=== PATIENT | female | born 1960 | race Caucasian/White ===

== ENCOUNTER 2024-08-30 17:39 | Inpatient (IN) | payer OTHER, SELFPAY ==
[2024-08-30 12:04] VITALS: BP 211/77
[2024-08-30 12:25] LABS: % Basophils 0.6 % (0-2); % Eosinophils 3.7 % (0-6); % Immature Granulocytes 0.3 % (0-0.5); % Lymphocytes 21.7 % (20.5-51.1); % Monocytes 6.9 % (1.7-9.3); % Neutrophils 66.8 % (42.2-75.2); Absolute Eosinophils 0.3 10^3/uL (0-0.7); Absolute Lymphocytes 1.5 10^3/uL (1.2-3.4); Absolute Monocytes 0.5 10^3/uL (0.1-0.6); Absolute Neutrophils 4.5 10^3/uL (1.4-6.5); Hematocrit 35.4 % (37.0-47.0); Hemoglobin 12.2 g/dL (12.0-16.0); Mean Corp Hgb Conc. 34.5 g/dL (33.0-37.0); Mean Corpuscular Hgb 29.9 pg (27.0-31.0); Mean Corpuscular Volume 86.8 fL (81.0-99.0); Mean Platelet Volume 10.7 fL (7.4-10.4); Nucleated Red Blood Cells % 0 %; Platelet Count 250 10^3/uL (130-400); Red Blood Cell Count 4.08 10^6/uL (4.20-5.40); Red Cell Dist. Width 12.5 % (11.5-14.5); White Blood Cell Count 6.8 10^3/uL (4.8-10.8)
[2024-08-30 12:43] LABS: ALT (SGPT) 18 U/L (0-35); AST (SGOT) 18 U/L (14-36); Albumin 4.3 g/dl (3.5-5.0); Alkaline Phosphatase 72 U/L (38-126); Blood Urea Nitrogen 51 mg/dl (7-17); Calcium 9.6 mg/dl (8.4-10.2); Carbon Dioxide 24 mmol/L (22-30); Chloride 101 mmol/L (98-107); Glucose 308 mg/dl (70-99); Potassium 4.6 mmol/L (3.5-5.1); Sodium 138 mmol/L (135-145); Total Bilirubin 0.6 mg/dl (0.2-1.3); Total Protein 6.6 g/dl (6.3-8.2); eGFR 15.39
[2024-08-30 12:44] VITALS: BP 137/126
[2024-08-30 13:00] VITALS: BP 121/83
--- NOTE | 2024-08-30 13:33 | ED.GENMED ---
History of Present Illness
General
Chief Complaint: Change in Mental Status
Source: patient and family
Exam Limitations: none
Time Seen by Provider: 08/30/24 12:39
Nursing documentation reviewed up to this point in time: agreed with
History of Present Illness
History of Present Illness:
Patient is a 64-year-old female with history of CAD, hypertension, diabetes presenting to the emergency department with altered mental status. Patient reports approximately 2 weeks of balance difficulties while walking. She then states that about
1 week ago she started experiencing dizziness/lightheadedness which has persisted although is intermittent in nature. On he suffered an unwitnessed fall in her bedroom. Her [id number]-[id number] states that yesterday she seemed confused and
altered and was having speech difficulties. She states that she was having difficulty finding the correct word.
Patient was seen by her primary care this morning where given her symptoms and elevated blood pressure in office she was concerned that she may have had a stroke. She was referred to the emergency department for CT imaging and further evaluation.
Patient denies any headache or neck pain. No pain in extremities following fall. Patient denies any back pain since fall.
She denies any recent fever or chills. No dysuria.
Review of Systems
Review of Systems
Allergies reviewed?: Yes
All Other Systems: ROS reviewed and negative except as documented in HPI and ROS
Phy Exam
Physical Exam
Physical Exam:
Vitals: Hypertensive on arrival, improved by my assessment.
General: Patient is well appearing, no acute distress. Nontoxic appearing
Skin: Warm and dry, no rashes or lesions
Head: Normocephalic, atraumatic
Eyes: Sclera nonicteric. EOMs intact. Pupils equal round reactive light bilaterally. No nystagmus.
Throat: Protecting airway
Neck: Normal ROM, no cervical spine tenderness, no meningismus
Cardiac: Regular rate and rhythm, no murmurs.
Pulm: Normal respiratory effort, no wheezes, rales, rhonchi heard on exam.
Abdomen: No abdominal tenderness.
Extremities: No evidence of cyanosis or edema. Strength 5 out of 5 in bilateral upper and lower extremities
Neuro: AAOx3. CN II-XII grossly intact on examination. Normal [id number]. Clear speech. No facial droop or asymmetry
Psychiatric: Normal affect.
Scores
NIH Stroke Score
Level of Consciousness: 0 - Alert
LOC Questions: 0-Answers both correctly
LOC Commands: 0-Performs both correctly
Best Horizontal Gaze: 0-Normal
Visual Burg[place]: 0=Normal, no visual loss
Facial Palsy: 0=Normal, symmetrical
Motor - Right Arm: 0=No drift 10 seconds
Motor - Left Arm: 0=No drift 10 seconds
Motor - Right Le-No drift 5 seconds
Motor - Left Le-No drift 5 seconds
Limb Ataxia: 0-Absent
Sensation: 0-Normal
Best Language: 0-No aphasia
Dysarthria: 0-Normal
Extinction and Inattention: 0-No abnormality
Total Score:: 0
Course
Orders/Labs/Results
Orders:
Orders
08/30/24 12:10
EKG [Electrocardiogram (*1)] Urgent
Reason for Study: Vertigo / Dizzy
EKG- Treatment ONCE
08/30/24 12:19
CBC/With Diff [Complete Blood Count/With Diff] Urgent
Comprehensive Metabolic Panel Urgent
Creatine Phosphokinase Urgent
Magnesium Urgent
Comment: ADD ON
Phosphorus Urgent
Comment: ADD ON
08/30/24 13:09
Cervical Spine wo Contrast CT [CT Cervical Spine W/o Iv Contr] Urgent
Comment:
Reason For Exam: unwitnessed fall
08/30/24 13:10
Add On- LAB Urgent
Tests Added?: CK
CT Head W/o Iv Contrast Urgent
Comment:
Reason For Exam: AMS, ataxia, fall
08/30/24 13:11
0.9% Sodium Chloride 1000 ml [Nss] 1,000 ml IV BOLUS
08/30/24 Dinner
1800 calorie (15 carb) Diabetic
At Your Request: Full Participation
Does patient need a safe tray?: No
0.9% Sodium Chloride 500 ml [Nss] 500 ml IV BOLUS
08/30/24 15:19
Aspirin Chewable [Low Strength Aspirin] 324 mg PO NOW STA
08/30/24 15:49
Add On- LAB Urgent
Tests Added?: mag , phos
Urinalysis Reflex To Culture Urgent
Date Specimen was Collected: 08/30/24
Time Specimen was Collected: 13:15
Urine Microscopic Reflex Cult Urgent
Urine Culture Urgent
VALARIE Source: U
Specimen Description:
Date Specimen was Collected: 08/30/24
Time Specimen was Collected: 13:15
08/30/24 16:41
Renal & Bladder US [US Renal With Bladder] Urgent
Comment:
Reason For Exam: arf
08/30/24 16:43
Admit/Transfer Patient As Directed
Co-Sign Provider:
Level of Care: Inpatient admission
Assign to:: Telemetry
Physician / Group: rosalinda leary
Diagnosis: arf 2/2 nephrotoxic med/hypovolemia, aphasia conc cva/tia, dm w/hyperglycem
Reason for Telemetry: Arrhythmia
Date to Stop Telemetry: 09/02/24
Time to Stop Telemetry: 11:00
Reason for Hospitalization: arf 2/2 nephrotoxic med/hypovolemia, aphasia conc cva/tia, dm w/hyperglycem
Expected length of stay greater than two midnights?: Yes
ELOS- Estimated Length of Stay in days: 3
I certify the patient meets the requirements for IP care: Yes
Code Status As Directed
Resuscitation Status: Full Code
08/30/24 16:47
PRN Pain Medication Management As Directed
May give lesser potent ordered pain med per pt: Yes
preference::
Protocol:: Medication orders for pain may be administered in a
manner that supports deferring to patient preference
when the pt is:
- Requesting an ordered lesser potent pain medication.
Least to most potent pain medications are defined
as: acetaminophen < NSAID < tramadol < opioids
(morphine, oxycodone, hydromorphone).
- Requesting a lesser dose of the same medication IF
ORDERED.
- Requesting a less intrusive route of administration
if both routes are prescribed by the provider (PO <
IV).
08/30/24 16:51
Consult Neurology [NEUROLOGY CONSULT] Routine
Consulting Provider: Tommie Cheema
Was physician already notified: Yes
Reason for consult: aphasia dizziness concern cva tia
08/30/24 18:07
0.9% Sodium Chloride 1000 ml [Nss] 1,000 ml IV 100 mls/hr
Acetaminophen [Tylenol] 650 mg PO Q4HPRN PRN
Bisacodyl [Dulcolax] 10 mg RECTAL [id number] PRN
Dextrose 50%-Water [Dextrose 50% Syringe] 12.5 grams IV [id number] PRN
Docusate W/Senna [Senokot-S] 1 tablet PO BIDPRN PRN
Glucagon [GlucaGen] 1 mg IM PRN PRN
HydrALAZINE [Apresoline] 10 mg IV Q6HPRN PRN
Polyethylene Glycol Powder [Miralax] 17 grams PO DAILYPRN PRN
08/30/24 18:07
Activity As Directed
Activity Level: As Tolerated
Bedside Glucose Monitoring As Directed
Frequency: AC&HS
Additional Instructions:: Change to q6h if pt on TPN, tube feeding or not eating
Bladder Scan As Directed
Follow Bladder Retention/Intermittent Cath Algorithm?: Yes
PRN if no void in __ hours: 6
Frequency: Per Retention Algorithm
If Bladder Scan Result >: 400
then:: Straight cath
Intake/ Output As Directed
Frequency: Per unit guidelines
Neurological Checks As Directed
Frequency: q4h
Orthostatic Vital Signs As Directed
Orthostatic VS Frequency: BID
Pneumatic Compression Sleeves As Directed
Type: Knee high
Straight Cath As Directed
Frequency: Per Retention Algorithm
Additional Instructions: straight cath as needed per acute urinary retention algorithm for 24 hrs
Additional Instructions: for bladder scan greater than 400 mL
Vital Signs As Directed
Frequency: Per unit guidelines
Weight As Directed
Frequency: Daily
Pt Eval And Treat Routine
Activity Level: As Tolerated
Speech Therapy Eval & Treat Routine
DX Deep Vein Thrombosis Video Routine
08/30/24 20:00
Metoprolol [Lopressor] 50 mg PO BID
08/31/24 06:00
Complete Blood Count/With Diff IN AM
Comprehensive Metabolic Panel IN AM
Glycohemoglobin (HgbA1c) IN AM
Lipid Profile [Cardiovascular Evaluation] IN AM
08/31/24 07:30
Insulin Aspart Corrective Mod [Novolog Flexpen-Moderate Resistance] See Protocol SC AC
08/31/24 08:00
Amlodipine [Norvasc] 10 mg PO DAILY
Aspirin Low Dose EC [Aspir Low (Enteric Coated)] 162 mg PO DAILY
Chlorthalidone [Hygroton] 25 mg PO DAILY
Ferrous Sulfate [Feosol] 325 mg PO DAILY
09/01/24 06:00
Complete Blood Count/With Diff IN AM
Comprehensive Metabolic Panel IN AM
09/02/24 06:00
Complete Blood Count/With Diff IN AM
Comprehensive Metabolic Panel IN AM
09/02/24 11:00
DC Protocol for Telemetry ONCE
Abnormal Lab Results
08/30/24 08/30/24
12:19 15:49
RBC 4.08 L 10^6/uL
(4.20-5.40)
Hct 35.4 L %
(37.0-47.0)
MPV 10.7 H fL
(7.4-10.4)
BUN 51 H mg/dl
(7-17)
Creatinine 3.2 H mg/dL
(0.6-1.0)
Glucose 308 H mg/dl
(70-99)
Leukocyte Esterase Rfl 2+ A
(Negative)
Urine Bacteria (Reflex) Few A
(Negative)
Urine Glucose 1+ A
(Negative)
Urine Albumin (Reflex) 3+ A
(Neg - Trace)
08/30/24 12:19
08/30/24 12:19
Vital Signs
Initial and Last Documented VS:
Initial Vital Signs
Temp Pulse Resp BP Pulse Ox
98.2 F 57 16 211/77 99
08/30/24 12:04 08/30/24 12:04 08/30/24 12:04 08/30/24 12:04 08/30/24 12:04
Last Documented Vital Signs
Temp Pulse Resp BP Pulse Ox
98.6 F 56 18 190/100 98
08/30/24 18:30 08/30/24 18:30 08/30/24 18:30 08/30/24 18:30 08/30/24 18:30
MDM/Problems Addressed
Differential Diagnosis Includes:
Not limited to: CVA, electrolyte abnormality, brain mass, acute dehydration, cardiac arrhythmia, etc.
MDM/Problems Addressed:
64-year-old female with intermittent dizziness and ataxia for the past 2 weeks now with new transient dysarthria and change in mental status yesterday. She did suffer an unwitnessed fall secondary to ataxia. Patient hypertensive on arrival with
otherwise normal vital signs. Physical exam as above. Patient alert and oriented x 3 with no evidence of head or neck trauma. No focal deficits on exam. She does not appear dysarthric. Patient has no gross ataxia although feels unstable while
ambulating. She does have mildly dry mucous membranes. Cardio/pulmonary assessment unremarkable. No abdominal tenderness. Differential broad although concern for CVA/central process. Will obtain basic lab work, urinalysis, head CT. Will obtain
cervical spine CT given unwitnessed fall. Will give IV fluids.
Update: Labs reviewed. Acute kidney injury noted with creatinine of 3.2 and elevated BUN. Likely secondary to hypovolemia. No findings to suggest obstructive process. Head CT shows likely chronic infarct without any acute infarct. No evidence
of traumatic injuries on imaging. However�given mental status changes and history of dysarthria�concern for CVA. Feel patient should be admitted for MRI and neuroconsult. In addition�patient will require fluid resuscitation for suspected CLEVE
secondary to hypovolemia. Will give full-strength aspirin and admit for further management. Patient admitted to hospital service in stable condition. Case was discussed with attending physician.
Chronic conditions affecting care:
Diabetes, hypertension
Acute Exacerbation and/or Progression of Chronic Illness:
Acutely hyperglycemic, acutely hypertensive
*Radiology
Radiology exam reviewed: preliminary read by ED provider (CT head-no acute abnormalities) and radiology read reviewed
*Pulse Oximetry
Patient hypoxic: no
*EKG
Interpreted by ED Provider?: Yes
EKG Intrepretation Date: 08/30/24
Interpretation: abnormal
Comparison EKG: no comparison EKG present
Heart Rate: 54
Rate: bradycardiac
Rhythm: sinus
[place]: normal axis
Interval: normal QT interval
QRS Pattern: right bundle branch block
Ischemia: non-specific ST changes
*Radiopharmacist Interpretation
Rate: normal
Interpretation: normal
Heart Rate: 60
Rhythm: sinus
*Critical Care Note
Total Time (30-74mins, 75-104mins- exclusive of procedures): Not Applicable
Patient Management
Discussion with other providers: Hospitalist
Escalation/DeEscalation of care consider admission/obs:
Admit for further evaluation, neuroconsult
ED Attending Note
-
Portions of this chart may have been created with voice recognition software.� Occasional wrong word or��sound alike� substitutions may have occurred due to the inherent limitations of voice recognition software.
Discharge Plan
Departure
Patient Disposition: Admit
Date of Disposition: 08/30/24
Time of Disposition: 15:19
Presentation/result/management discussed w/ accepting MD/DO: Hospitalist
Discharge Problem:
Altered mental status, Ataxia
Interventions
Interventions:
*Risk Screen - Suicide Last Done: 08/30/24 19:04
*Neglect/Abuse Screening Last Done: 08/30/24 12:04
*Nursing Disposition Last Done: 08/30/24 18:14
ED- Pulmonary Assessment Last Done: 08/30/24 13:24
ED- Neurological Assessment Last Done: 08/30/24 13:24
ED- Cardiac Assessment Last Done: 08/30/24 13:24
ED Swallowing Screen Last Done: 08/30/24 13:24
Discharge Date and Time
Discharge Date/Time: 08/30/24 18:14
[2024-08-30] MEDS: NSS 1000 IV (13:42)
[2024-08-30 15:05] LABS: Creatine Phosphokinase 63 U/L (30-135)
--- NOTE | 2024-08-30 15:47 | HPS.HSE ---
Family Physician
-
Family Physician: Rickey Queen
Chief Complaint
-
Dizziness, lightheadedness, off balance, x 1 week, expressive aphasia yesterday
History of Present Illness
64-year-old female reports approximately 2 weeks of feeling off balance with walking. She also reports dizziness/lightheadedness starting 1 week ago which has persisted but is intermittent. 6 days ago on Monday she had unwitnessed fall in her
bedroom she states she was walking felt dizzy fell onto her right knee on the rug has a rug burn but no current knee pain. She believes she had no LOC. She denies headaches or blurred vision. Her [id number] is at bedside states she seemed
confused and altered yesterday and was having speech difficulties inability to find the correct word. She is awake alert oriented x 3 speech is clear there are no neurological deficits EOMs intact no nystagmus. She believes she might of had a CVA
during her NE and cardiac stents back in 2006 but is not positive. The patient was seen by her PCP this morning given her symptoms and elevated blood pressure she was sent to ER for evaluation of CVA. In the ER she was noted to have elevated creat
of 3.2 concerning for CLEVE, DM2 with hyperglycemia and reported ataxia with reported aphasia concerning for possible CVA. Patient has past medical history of CAD status post cardiac stent 2006, HTN, prior nicotine use 47-year 1 pack a day quit 3
years ago was vaping for 2 years , GERD, DM 2.
Medical History
Past Medical History
Past Medical History: Reports Other
Additional Past Medical History:
CAD status post cardiac stent 2006
HTN
vapes nicotine
GERD
DM 2.
Possible CVA 2006 post cardiac stent NE
Past Surgical History: Reports Other
Additional Past Surgical History:
Uterine polyps removed times 06/20/2014
Cardiac stent 2006
Social History
Tobacco: Former Smoker (47-year 1 pack a day, vaping 2 years quit 2022)
Alcohol: None
Drug: None
Personal: Single
Living: With Family (Mother age 92, [id number], brother, niece)
Employment: Retired
Family History
Family History: Not pertinent
Allergies / Home Medications
Allergies reflects when Allergies were last updated in [employer].
Home Medications with original date entered in [employer]
Allergy/Medication List:
Allergies
Allergy/AdvReac Type Severity Reaction Status Date / Time
No Known Allergies Allergy Verified 08/30/24 12:04
Home Medications
amlodipine 10 mg tablet 10 mg PO DAILY 07/19/19
chlorthalidone 25 mg tablet 25 mg PO DAILY 07/19/19
metformin 1,000 mg tablet 1,000 mg PO BID 07/19/19
metoprolol tartrate 50 mg tablet 50 mg PO BID 07/19/19
aspirin 81 mg tablet,delayed release 162 mg PO DAILY 08/30/24
atorvastatin 20 mg tablet (Lipitor) 20 mg PO QPM 08/30/24
ferrous sulfate 325 mg (65 mg iron) tablet 325 mg PO DAILY 08/30/24
furosemide 20 mg tablet (Lasix) 20 mg PO DAILY 08/30/24
glimepiride 2 mg tablet 2 mg PO DAILY 08/30/24
lisinopril 40 mg tablet 40 mg PO DAILY 08/30/24
Review of Systems
-
History Source: Patient and Family ([id number])
A 12 point ROS was completed and negative except as noted: Yes
Constitutional: Denies Fever, Fatigue or Chills
EENT: Reports Other (Reported expressive aphasia yesterday); Denies Sore Throat or Runny Nose
Respiratory: Denies Cough or Trouble Breathing
Cardiac: Denies Chest Pain, Diaphoresis, Palpitations or Syncope
Abdomen/GI: Denies Abdominal Pain, Nausea, Vomiting, Diarrhea, Constipated, Bloody Stools or Black Stools
: Denies Dysuria, Frequency, Flank Pain, Incontinence, Difficulty Voiding, Urgency or Bleeding
Musculoskeletal: Denies Joint Pain or Edema
Skin: Reports Other (Rug burn right knee 1 week old); Denies Itching or Rash
Neurological: Reports Dizzy and Other (Feeling off balance); Denies Headache, Weakness or Numbness
Endocrine: Reports No Symptoms
Hematologic/Lymphatic: Reports No Symptoms
Psych: Reports Calm
Physical Exam
Vital Signs
Vital Signs
Temp Pulse Resp BP Pulse Ox
98.2 F 51 18 121/83 93
08/30/24 12:04 08/30/24 13:30 08/30/24 13:30 08/30/24 13:00 08/30/24 14:04
Physical Exam
General: Comfortable and Conversant; No Pain, Fever or Chills
HEENT: NormoCephalic, Anicteric, PERRLA (Negative nystagmus, EOMs intact), [place] Conjunctivae, No Ptosis and Other (Dry oral mucosa)
Respiratory: Clear; No Wheezes, Rales or Rhonchi
Cardiac: S1/S2 and Regular Rhythm; No Murmur, Rub, Gallop or Peripheral Edema
Breast: Deferred by me
GI: Soft, Non Tender, Non Distended, Normal Bowel Sounds and No Hepatosplenomegaly
Rectal: Deferred by Provider
Genito-urinary: Deferred by me
Musculoskeletal: No Clubbing, No Cyanosis and No Edema
Skin: Warm, Dry and Other (Old rug burn abrasion right knee from fall 6 days ago); No Rash
Neuro: AO x 3, No Motor Deficits, Nonfocal/grossly intact, Cranial Nerves Intact, No Sensory Deficits and DTR's Intact & Symmetrical; No Slurred Speech, Facial Droop, Tremors or Sedated
Psych: Calm
Laboratory Results
-
08/30/24 12:19
08/30/24 12:19
Laboratory Results
Total Bilirubin 0.6 mg/dl (0.2-1.3) 08/30/24 12:19
AST 18 U/L (14-36) 08/30/24 12:19
ALT 18 U/L (0-35) 08/30/24 12:19
Alkaline Phosphatase 72 U/L (38-126) 08/30/24 12:19
Data Reviewed
-
CT Scan: Report Reviewed by me
Lab Data: Labs Reviewed by me
Impression/Plan
-
Impression/plan:
Inpatient telemetry
#Acute renal failure unclear etiology obstructive versus diuretics-Hypovolemia/lisinopril/metformin
K3.2, baseline 1.1 in 2019
Check renal bladder ultrasound
- Bedside bladder scan
-Check UA with culture reflex
- Hold lisinopril 40 mg daily, metformin 1000 mg twice daily, chlorthalidone 25 daily, Lasix 20 mg daily
- IV NSS 1.5 L bolus given in ER
- Continue IV NSS 100 cc/h
- Check magnesium, phosphorus level
#Reported ataxia/aphasia concern CVA
#History of old CVA on CT head�6 mm chronic lacunar infarct right thalamus-patient believes this was in 2006 during her stent placement
-Aspirin 324 mg given in ER
-Continue aspirin 162 mg daily, Lipitor 20 mg every afternoon
- Consult neurology
- MRI brain
-Neurochecks every 4 hours
- PT/OT consult
CT head:
1. No CT evidence for acute intracranial hemorrhage or transcortical infarct.
2. 6 mm chronic lacunar infarct in the right thalamus.
3. Mild periventricular white matter leukoaraiosis.
4. Mild diffuse cerebral and cerebellar volume loss.
# HTN- acclerated - resolved
BP 211/77> self corrected 121/83
- Continue amlodipine 10 mg daily, metoprolol tartrate 50 mg twice daily with hold parameters
-Hold chlorthalidone 25 mg daily, hold Lasix 20 mg daily,Hold lisinopril due to ARF
- Hydralazine 10 mg every 6 hours as needed SBP > 165
#Unwitnessed fall neck pain due to severe DDD C4-C5, C5-C6
#Fall with right knee abrasion 1 week old�rug burn
-Tylenol as needed pain
-PT/OT
CT cervical spine:
1. SEVERE DISCOGENIC DEGENERATIVE DISEASE at C4/C5 and C5/C6.
2. Severe right neural foraminal narrowing, mild spinal cord compression, and mild central canal stenosis at C4/C5.
3. Moderate bilateral neural foraminal narrowing, mild spinal cord compression, and mild central canal stenosis at C5/C6.
#DM2 with acute hyperglycemia
Blood sugar 308, anion gap 12.3
- Hold metformin due to CLEVE
-Hold glimepiride
-Accu-Cheks with moderate SSI, check HgbA1c
#CAD status post cardiac stent 2006
- Continue aspirin 162 mg daily, Lipitor 20 mg daily
#Prior nicotine abuse 47-year 1 pack a day quit 2 years ago was vaping the last 2 years
#GERD
-No reported meds
DVT prophylaxis
SCDs
Full code
[2024-08-30] MEDS: LOW STRENGTH ASPIRIN 324 MG PO (15:50)
[2024-08-30] MEDS: NSS 500 IV (15:51)
[2024-08-30 16:03] LABS: Urine Albumin 3+ (Neg - Trace); Urine Bilirubin Negative (Negative); Urine Character Clear (Clear); Urine Color Yellow; Urine Glucose 1+ (Negative); Urine Ketone Negative (Negative); Urine Leukocyte 2+ (Negative); Urine Nitrite Negative (Negative); Urine Occult Blood Negative (Negative); Urine Urobilinogen Negative (Neg - 1+)
[2024-08-30 16:19] LABS: Urine Red Blood Cell 0-2 /HPF (0-2); Urine Squamous Cell >30 /LPF (Few)
[2024-08-30 16:20] LABS: Urine Bacteria Few (Negative)
[2024-08-30 16:42] LABS: Phosphorus 3.9 mg/dl (2.5-4.5)
[2024-08-30 18:25] LABS: Glucose - Point of Care 149 mg/dl (70-99)
[2024-08-30 18:30] VITALS: BP 190/100
[2024-08-30] MEDS: APRESOLINE 10 MG IV (18:45)
--- NOTE | 2024-08-30 19:00 | PTCARENOTE ---
1830 Pt arrived from ER via stretcher. Alert and oriented x 3. Speech clear. Noted MD orders. Place pt on telemetry (Sinus Rhythm, Sinus Qamar)
1839 BP 190/100, Hydralazine 10mg IV given as ordered, explain to pt. See NIH stroke scale documentation. 1844 Report given to slot shift manager nurse.
--- NOTE | 2024-08-30 19:06 | W.PN.UPDATE ---
Update Note
Progress Note Update
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
64-year-old female past medical history of diabetes, CAD status post stent, hypertension, GERD, prior nicotine use, CVA in 2006 presenting with 2 weeks of lightheadedness and 1 day of word finding difficulty.� No focal neurological deficits.
Vital signs initially showed blood pressure of 211/77 which spontaneously improved.
Labs showed creatinine of 3.2 from 1.1.� Blood sugar of 308.
CT head shows 6 mm chronic lacunar infarct in the right thalamus.� CT cervical spine no acute abnormality.
Aphasia seems to have improved.� Neurological examination is normal.� Main issue appears to be CLEVE secondary to hypovolemia and nephrotoxic medications possibly resulting in hypotension/orthostatic symptoms.� IV fluids, bladder ultrasound, monitor
urine output, check orthostatic vital signs.
Also concern for chronic strokes.� Check MRI brain and neurology consulted.
[2024-08-30 20:33] VITALS: BMI 23.2
[2024-08-31] VITALS (8 sets, daily range): BP systolic 148–197; BP diastolic 61–118; PULSE 55–97; O2SAT 98; BMI 23.0
[2024-08-31] MEDS: LOPRESSOR 50 MG PO ×2 (01:58→20:48)
[2024-08-31] MEDS: APRESOLINE 10 MG IV (01:58)
[2024-08-31] MEDS: NSS 1000 IV ×3 (01:59→23:12)
[2024-08-31 02:25] LABS: Glucose - Point of Care 207 mg/dl (70-99)
--- NOTE | 2024-08-31 05:12 | PTCARENOTE ---
Unable to provide 2000 meds to patient until 0200 d/t floors being waxed/nursing staff not being allowed to walk on floors during floor cleaning. Pt remained AAOx3, reports mild headache that resolved ~ 0400. IVFs infusing, PRN hydralazine
provided for BP of 180/77.
[2024-08-31 06:47] LABS: % Basophils 0.7 % (0-2); % Eosinophils 2.7 % (0-6); % Immature Granulocytes 0.3 % (0-0.5); % Lymphocytes 18.9 % (20.5-51.1); % Monocytes 7.3 % (1.7-9.3); % Neutrophils 70.1 % (42.2-75.2); Absolute Basophils 0.1 10^3/uL (0-0.2); Absolute Eosinophils 0.2 10^3/uL (0-0.7); Absolute Lymphocytes 1.4 10^3/uL (1.2-3.4); Absolute Monocytes 0.6 10^3/uL (0.1-0.6); Absolute Neutrophils 5.3 10^3/uL (1.4-6.5); Hematocrit 35.3 % (37.0-47.0); Hemoglobin 12.2 g/dL (12.0-16.0); Mean Corp Hgb Conc. 34.6 g/dL (33.0-37.0); Mean Corpuscular Hgb 29.2 pg (27.0-31.0); Mean Corpuscular Volume 84.4 fL (81.0-99.0); Mean Platelet Volume 11.8 fL (7.4-10.4); Nucleated Red Blood Cells % 0 %; Platelet Count 227 10^3/uL (130-400); Red Blood Cell Count 4.18 10^6/uL (4.20-5.40); Red Cell Dist. Width 12.7 % (11.5-14.5); White Blood Cell Count 7.5 10^3/uL (4.8-10.8)
[2024-08-31 07:11] LABS: Glucose - Point of Care 231 mg/dl (70-99)
[2024-08-31] MEDS: NOVOLOG FLEXPEN-MODERATE RESISTANCE 3 UNITS SC (07:44)
[2024-08-31] MEDS: ASPIR LOW (ENTERIC COATED) 162 MG PO (07:48)
[2024-08-31] MEDS: FEOSOL 325 MG PO (07:50)
[2024-08-31] MEDS: NORVASC PO (07:55)
[2024-08-31] MEDS: LOPRESSOR PO (07:55)
--- NOTE | 2024-08-31 08:08 | CON.NEURO ---
Neuro Assessment/Plan
Assessment
Ataxia and aphasia
Consultation
Order
Date of Consultation: 08/31/24
Requesting Provider:
Reason for Consult:
Subjective/Objective
Subjective Data
Date of Service: August 31, 2024
Patient reports approximately 2 weeks of balance difficulties while walking. She then states that about 1 week ago she started experiencing dizziness/lightheadedness which has persisted although is intermittent in nature. On he suffered an
unwitnessed fall in her bedroom. Her [id number] states that yesterday she seemed confused and altered and was having speech difficulties. She states that she was having difficulty finding the correct word.
Patient was seen by her primary care this morning where given her symptoms and elevated blood pressure in office she was concerned that she may have had a stroke.
Objective Data
Vital Signs
Temp Pulse Resp BP Pulse Ox
37.0 C 50 18 184/118 96
08/31/24 01:49 08/31/24 07:55 08/31/24 01:49 08/31/24 06:29 08/31/24 01:49
Lab Results
08/31/24 06:05
Sodium Cancelled 08/31/24 06:05
Potassium Cancelled 08/31/24 06:05
BUN Cancelled 08/31/24 06:05
Glucose Cancelled 08/31/24 06:05
Calcium Cancelled 08/31/24 06:05
Phosphorus 3.9 mg/dl (2.5-4.5) 08/30/24 12:19
LDL Cholesterol, Calc Cancelled 08/31/24 06:05
Patient Allergies
No Known Allergies Allergy (Verified 08/30/24 12:04)
Medications
-
Active Medications
Generic Name Dose Route Start Last Admin
Trade Name Freq PRN Reason Stop Dose Admin
Acetaminophen 650 mg 08/30/24 18:07
Acetaminophen 325 Mg Tablet PO 09/27/24 18:06
Q4HPRN PRN
mild pain/SUERO/temp> 100.4F
Amlodipine Besylate 10 mg 08/31/24 08:00 08/31/24 07:55
Amlodipine 10 Mg Tablet PO 09/28/24 07:59 Not Given
DAILY DEONDRE
Aspirin 162 mg 08/31/24 08:00 08/31/24 07:48
Aspirin 81 Mg (Enteric Coated) Tablet PO 09/28/24 07:59 162 mg
DAILY DEONDRE Administration
Atorvastatin Calcium 20 mg 08/31/24 18:00
Atorvastatin (Lipitor) 20 Mg Tablet PO 09/28/24 17:59
QPM DEONDRE
Bisacodyl 10 mg 08/30/24 18:07
Bisacodyl 10 Mg Rectal Suppository RECTAL 09/27/24 18:06
[id number] PRN
constipation
Dextrose 12.5 grams 08/30/24 18:07
Dextrose 50% (0.5 Grams/Ml) 50 Ml Syringe IV 09/27/24 18:06
[id number] PRN
hypoglycemia
Protocol
Ferrous Sulfate 325 mg 08/31/24 08:00 08/31/24 07:50
Ferrous Sulfate 325 Mg Tablet PO 09/28/24 07:59 325 mg
DAILY DEONDRE Administration
Glucagon 1 mg 08/30/24 18:07
Glucagon 1 Mg Vial IM 09/27/24 18:06
PRN PRN
hypoglycemia
Protocol
Hydralazine HCl 10 mg 08/30/24 18:07 08/31/24 01:58
Hydralazine 20 Mg/Ml Vial IV 09/27/24 18:06 10 mg
Q6HPRN PRN Administration
sbp>165 mis>110
Sodium Chloride 1,000 mls @ 100 mls/hr 08/30/24 18:07 08/31/24 01:59
Nss IV 08/31/24 14:06 1,000 mls
.Q10H DEONDRE Administration
Insulin Aspart 0 units 08/31/24 07:30 08/31/24 07:44
Insulin Aspart Moderate Resistance 300 Units/3 Ml Pen.Injctr SC 09/28/24 07:29 3 units
AC DEONDRE Administration
Protocol
Metoprolol Tartrate 50 mg 08/30/24 20:00 08/31/24 07:55
Metoprolol 50 Mg Regular Release Tablet PO 09/27/24 19:59 Not Given
BID DEONDRE
Polyethylene Glycol 17 grams 08/30/24 18:07
Polyethylene Glycol Powder 17 Grams Packet PO 09/27/24 18:06
DAILYPRN PRN
constipation
Senna/Docusate Sodium 1 tablet 08/30/24 18:07
Docusate W/Senna (Erica-Colace) Tablet PO 09/27/24 18:06
BIDPRN PRN
constipation
Sodium Chloride 0 flush 08/30/24 19:00
Sodium Chloride 0.9% (Flush) Syringe IV 09/27/24 18:59
PER PROTOCOL DEONDRE
Home Medications
�Medication �Instructions �Recorded
amlodipine 10 mg tablet 10 mg PO DAILY 07/19/19
chlorthalidone 25 mg tablet 25 mg PO DAILY 07/19/19
metformin 1,000 mg tablet 1,000 mg PO BID 07/19/19
metoprolol tartrate 50 mg tablet 50 mg PO BID 07/19/19
aspirin 81 mg tablet,delayed 162 mg PO DAILY 08/30/24
release
atorvastatin 20 mg tablet (Lipitor) 20 mg PO QPM 08/30/24
ferrous sulfate 325 mg (65 mg 325 mg PO DAILY 08/30/24
iron) tablet
furosemide 20 mg tablet (Lasix) 20 mg PO DAILY 08/30/24
glimepiride 2 mg tablet 2 mg PO DAILY 08/30/24
lisinopril 40 mg tablet 40 mg PO DAILY 08/30/24
Past History
Past History
ED Past Medical History: CAD, Cancer (bronchial carcinoid tumor LLL), HTN, NIDDM and Other (CLEVE _2024, uterine polyps)
ED Past Surgical History: Cardiac (stent 2006)
Social History
Tobacco: Former smoker
Alcohol: None
Drug: None
Personal: Single
Living: with family
Employment: Retired
Family History
Family History: Other (reviewed and non-contributory)
[2024-08-31 08:43] LABS: ALT (SGPT) 14 U/L (0-35); AST (SGOT) 16 U/L (14-36); Albumin 3.5 g/dl (3.5-5.0); Alkaline Phosphatase 63 U/L (38-126); Blood Urea Nitrogen 40 mg/dl (7-17); Calcium 9.1 mg/dl (8.4-10.2); Carbon Dioxide 22 mmol/L (22-30); Chloride 108 mmol/L (98-107); Estimated Creatinine Clearance 18 ml/min; Glucose 217 mg/dl (70-99); HDL Cholesterol 46 mg/dl; LDL Cholesterol, Calculated 53 mg/dl; Potassium 3.8 mmol/L (3.5-5.1); Sodium 140 mmol/L (135-145); Total Bilirubin 0.7 mg/dl (0.2-1.3); Total Cholesterol 144 mg/dl (50-199); Total Protein 5.8 g/dl (6.3-8.2); Triglyceride 229 mg/dl (10-149); Very Low Density Lipoprotein 45 mg/dl (0-30); eGFR 20.69
[2024-08-31 10:35] LABS: Glycohemoglobin (HgbA1c) 7.4 % (4.0-5.6)
--- NOTE | 2024-08-31 10:58 | W.PN.HOSP.TC ---
Today's Communication/Plan
-
see PN
Assessment / Plan
Assessment / Plan
64yo F with PMHX of HTN, HLD, DM, , lung CA (carcinoid) s/p L pulmectomy in [place] in 2020, CAD s/p PR, carotid stenosis sent by her PCP 2/2 patient loosing balance and was unable to walk with concern for CVA. MRI brain showed no signs of acute
CVA. CLEVE on admisison since patient was nauseated and could not keep food down at home possibly due to UTI
Patient with PMHx of open heart Sx, COVID-19 in 2021 with progressive cognitive decline since that time. She also hhad lung rsection in [facility] in 2020 due to carcinoma, probably occured since patient was a long time smoker and vaper.
After that she was not following with doctors and wasvery reluctant to take meds as prescribed. She also was experiencing frequent falls and frequent bouts of vomiting for years now. PCP previously recommended EGD/colonoscopy but she never followed
for that. Started to get progressively worse since 2 weeks ago.
A/P:
#DIzziness, ambulatory deficiency
Most liekyl 2/2 dehydration with poor oral intake due to nausea and vomiting
hydrate
PT/OT
MRI brain with no CVA
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
#Severe right neural foraminal narrowing, mild spinal cord compression, and mild central canal stenosis at C4/C5
#Moderate bilateral neural foraminal narrowing, mild spinal cord compression, and mild central canal stenosis at C5/C6
NeuroSx consult
PT/OT
#Minor nonspecific white matter leukoaraiosis.
#Moderate confluent white matter hyperintensity in laly.
Such findings are nonspecific. Possible considerations include demyelination, gliosis, chronic microvascular white matter ischemic disease. Intravascular large B-cell lymphoma has also been described with features of high signal intensity lesions in
the laly, as has osmotic demyelination syndrome (clinical setting of rapid correction of hyponatremia)
With no lymphocytosis, normal sodium, no signs of acute demilienation syndrome- will favour microvascular white matter disease or previous demilienation
cont ASA
#CLEVE
most liekly dehydration
US renal without hydronephrosis or acute renal findings
Hydrate
follow Cr
#UTI
Ceftriaxone pending Ucx
#Nausea/vomiting
most liekly 2/2 UTI
monitor
if continues - CT abd, but currently abd soft, not painful, LFT WNL
#DM type 2 with unspecified complications
Accuchecks, Insulin S, DM diet
HgbA1c pending
Hold metformin
#CAD, stable
#Essential HTN
#HLD
cont home meds
hold ACEi
#Hx of bronchial carcinoid
advised to follow with previous Oncologist - discussed in details with sister
would benefit from CT chest/abd/pelvis at some point preferrably with contrast - currently with CLEVE, will defer
DVT ppx on SCDs
Full code
I have spent at least 57min reviewing chart, test results, communication with family and providing direct patient care
Anticipated Discharge: > 48 hours
Subjective/Interval History
-
Date of Service: August 31, 2024
Objective Data
-
Labs:
Laboratory Results
08/31/24 08/31/24
06:05 07:55
WBC 7.5
Hgb 12.2
Hct 35.3 L
Plt Count 227
Sodium Cancelled 140
Potassium Cancelled 3.8
Chloride Cancelled 108 H
Carbon Dioxide Cancelled 22
BUN Cancelled 40 H
Creatinine Cancelled 2.5 H
Glucose Cancelled 217 H
Calcium Cancelled 9.1
Total Bilirubin Cancelled 0.7
AST Cancelled 16
ALT Cancelled 14
Alkaline Phosphatase Cancelled 63
Vital Signs:
Vital Signs
Temp Pulse Resp BP Pulse Ox
98.1 F 50 20 148/66 98
08/31/24 07:30 08/31/24 07:55 08/31/24 07:30 08/31/24 07:30 08/31/24 07:30
I&O
08/30/24 08/31/24 09/01/24
06:59 06:59 06:59
Intake Total 240 / 240 400 / 400
Balance 240 / 240 400 / 400
Review of Systems
-
History Source: Patient
All other systems: Reviewed and negative
Abdomen/GI: Reports Nausea and Vomiting
Endocrine: Reports Polyuria
Physical Exam
-
General: Well Developed
HEENT: Normocephalic
Respiratory: Clear to Auscultation
GI: Soft, Nontender and Nondistended
Neuro: Awake, Alert, Oriented, AO x 3 and No Motor Deficits
Psych: Calm and Apparent Dementia
[2024-08-31] MEDS: ROCEPHIN 1000 MG IV (12:04)
[2024-08-31] MEDS: STERILE WATER FOR INJECTION 10 ML IV (12:05)
[2024-08-31 12:29] LABS: Glucose - Point of Care 254 mg/dl (70-99)
[2024-08-31] MEDS: NOVOLOG FLEXPEN-MODERATE RESISTANCE 5 UNITS SC (14:35)
--- NOTE | 2024-08-31 14:43 | PTOTSP ---
Speech therapy
Presentation: Patient was oriented and followed commands. 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 Patient expressed having 'word finding' trouble for 'a while'. Speech and language appeared to be WNL during conversation.
Swallowing Function: Patient was observed with several bites of regular consistency solids and sips of thin liquids from her meal tray. Patient appeared to tolerate trials as she did not exhibit any overt clinical s/sx of aspiration or difficulty
with mastication/ manipulation. Patient denied dysphagia complaints.
Recommendations:
1) Reg/ thin
2) aspiration precautions
3) consideration of speech/ language evaluation
4) medications as tolerated
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
--- NOTE | 2024-08-31 15:45 | CM ---
manager resource reviewed patient's chart and met with patient and patient lives with her mother, sister and brother in law, in a 2 story home, patient is independent with adl's and ambulation. Per patient there is a walker, cane and w/c in home.
PCP: Dr. Queen
Pharmacy: [facility] in [place]
Plan; Home when stable, no needs.
[2024-08-31 17:37] LABS: Glucose - Point of Care 312 mg/dl (70-99)
[2024-08-31] MEDS: NOVOLOG FLEXPEN-MODERATE RESISTANCE 7 UNITS SC (18:38)
[2024-08-31] MEDS: LIPITOR 20 MG PO (18:41)
[2024-08-31] MEDS: APRESOLINE 25 MG PO ×2 (18:41→23:13)
[2024-08-31 21:25] LABS: Glucose - Point of Care 275 mg/dl (70-99)
[2024-09-01] VITALS (7 sets, daily range): BP systolic 153–192; BP diastolic 63–90; PULSE 74–82; BMI 23.3
[2024-09-01] MEDS: APRESOLINE 10 MG IV ×2 (04:43→20:40)
[2024-09-01 07:32] LABS: Glucose - Point of Care 240 mg/dl (70-99)
[2024-09-01 07:50] LABS: ALT (SGPT) 14 U/L (0-35); AST (SGOT) 15 U/L (14-36); Albumin 3.3 g/dl (3.5-5.0); Alkaline Phosphatase 65 U/L (38-126); Blood Urea Nitrogen 32 mg/dl (7-17); Calcium 9.6 mg/dl (8.4-10.2); Carbon Dioxide 21 mmol/L (22-30); Chloride 111 mmol/L (98-107); Estimated Creatinine Clearance 23 ml/min; Glucose 253 mg/dl (70-99); Potassium 3.8 mmol/L (3.5-5.1); Sodium 142 mmol/L (135-145); Total Bilirubin 0.5 mg/dl (0.2-1.3); Total Protein 5.7 g/dl (6.3-8.2); eGFR 27.04
[2024-09-01 07:58] LABS: % Basophils 0.9 % (0-2); % Eosinophils 3.7 % (0-6); % Immature Granulocytes 0.3 % (0-0.5); % Lymphocytes 19.6 % (20.5-51.1); % Monocytes 7.1 % (1.7-9.3); % Neutrophils 68.4 % (42.2-75.2); Absolute Basophils 0.1 10^3/uL (0-0.2); Absolute Eosinophils 0.3 10^3/uL (0-0.7); Absolute Lymphocytes 1.4 10^3/uL (1.2-3.4); Absolute Monocytes 0.5 10^3/uL (0.1-0.6); Absolute Neutrophils 4.8 10^3/uL (1.4-6.5); Hematocrit 37.1 % (37.0-47.0); Hemoglobin 12.4 g/dL (12.0-16.0); Mean Corp Hgb Conc. 33.4 g/dL (33.0-37.0); Mean Corpuscular Hgb 29.1 pg (27.0-31.0); Mean Corpuscular Volume 87.1 fL (81.0-99.0); Mean Platelet Volume 11.5 fL (7.4-10.4); Nucleated Red Blood Cells % 0 %; Platelet Count 251 10^3/uL (130-400); Red Blood Cell Count 4.26 10^6/uL (4.20-5.40); Red Cell Dist. Width 12.9 % (11.5-14.5)
[2024-09-01] MEDS: ASPIR LOW (ENTERIC COATED) 162 MG PO (08:23)
[2024-09-01] MEDS: NORVASC 10 MG PO (08:23)
[2024-09-01] MEDS: NOVOLOG FLEXPEN-MODERATE RESISTANCE 3 UNITS SC ×2 (08:24→17:22)
[2024-09-01] MEDS: APRESOLINE 25 MG PO ×3 (08:24→21:56)
[2024-09-01] MEDS: FEOSOL 325 MG PO (08:24)
[2024-09-01] MEDS: LOPRESSOR 50 MG PO ×2 (08:25→20:41)
[2024-09-01] MEDS: NSS 1000 IV (08:26)
[2024-09-01 09:59] LABS: Protein/creatinine Ratio 8.3; Urine Protein 295 mg/dl
[2024-09-01] MEDS: ROCEPHIN 1000 MG IV (10:26)
[2024-09-01] MEDS: STERILE WATER FOR INJECTION 10 ML IV (10:26)
--- NOTE | 2024-09-01 11:25 | W.PN.HOSP.TC ---
Today's Communication/Plan
-
MRI abd
Nephrology consult
Assessment / Plan
Assessment / Plan
64yo F with PMHX of HTN, HLD, DM, , lung CA (carcinoid) s/p L lobar lung resection in [place] in 2020, CAD s/p CT, carotid stenosis sent by her PCP 2/2 patient loosing balance and was unable to walk with concern for CVA. MRI brain showed no signs
of acute CVA. CLEVE on admission since patient was nauseated and could not keep food down at home possibly due to UTI
Patient with PMHx of open heart Sx, COVID-19 in 2021 with progressive cognitive decline since that time. She also had lung resection in [facility] in 2020 due to carcinoma, probably occured since patient was a long time smoker and vaper.
After that she was not following with doctors and was very reluctant to take meds as prescribed. She also was experiencing frequent falls and frequent bouts of vomiting for years now. PCP previously recommended EGD/colonoscopy but she never followed
for that. Started to get progressively worse since 2 weeks ago.
A/P:
#CLEVE with nephrotic range proteinuria
Nephrology consult
most liekly dehydration
US renal without hydronephrosis or acute renal findings
Hydrate
follow Cr
#Nausea/vomiting
recurrent
MRI abd with Hx of cancer
#Dizziness, ambulatory deficiency
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
improved
cotn ASA, statinincrease to 40mg
LDL 53
Most likely 2/2 dehydration with poor oral intake due to nausea and vomiting
hydrate
PT/OT
MRI brain with no CVA
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
#Severe right neural foraminal narrowing, mild spinal cord compression, and mild central canal stenosis at C4/C5
#Moderate bilateral neural foraminal narrowing, mild spinal cord compression, and mild central canal stenosis at C5/C6
DIscussed with neurologist
NeuroSx consult as outpatient - since no focal deficit on exam
PT/OT
#Minor nonspecific white matter leukoaraiosis.
#Moderate confluent white matter hyperintensity in laly.
Such findings are nonspecific. Possible considerations include demyelination, gliosis, chronic microvascular white matter ischemic disease. Intravascular large B-cell lymphoma has also been described with features of high signal intensity lesions in
the laly, as has osmotic demyelination syndrome (clinical setting of rapid correction of hyponatremia)
With no lymphocytosis, normal sodium, no signs of acute demilienation syndrome- will favour microvascular white matter disease or previous demilienation
cont ASA
#UTI ruled out
Ceftriaxone stopped sicne Ucx neg
#DM type 2 with unspecified complications
Accuchecks, Insulin S, DM diet
HgbA1c 7.4%
Hold metformin
#CAD, stable
#Essential HTN
#HLD
cont home meds
hold ACEi
#Hx of bronchial carcinoid
advised to follow with previous Oncologist - discussed in details with sister
would benefit from CT chest/abd/pelvis at some point preferably with contrast - currently with CLEVE, will defer
DVT ppx on SCDs
Full code
I have spent at least 37min reviewing chart, test results, communication with family and providing direct patient care
Anticipated Discharge: > 48 hours
Subjective/Interval History
-
Date of Service: September 01, 2024
Objective Data
-
Labs:
Laboratory Results
09/01/24
06:49
WBC 7.0
Hgb 12.4
Hct 37.1
Plt Count 251
Sodium 142
Potassium 3.8
Chloride 111 H
Carbon Dioxide 21 L
BUN 32 H
Creatinine 2.0 H
Glucose 253 H
Calcium 9.6
Total Bilirubin 0.5
AST 15
ALT 14
Alkaline Phosphatase 65
Vital Signs:
Vital Signs
Temp Pulse Resp BP Pulse Ox
97.8 F 66 16 186/73 99
09/01/24 07:30 09/01/24 08:24 09/01/24 07:30 09/01/24 08:24 09/01/24 07:30
I&O
08/31/24 09/01/24 09/02/24
06:59 06:59 06:59
Intake Total 240 / 240 3940 / 3940
Balance 240 / 240 3940 / 3940
Review of Systems
-
History Source: Patient
All other systems: Reviewed and negative
Abdomen/GI: Reports Nausea and Vomiting
Physical Exam
-
General: No Apparent Distress
Respiratory: Clear to Auscultation
Cardiac: Regular Rhythm
GI: Soft and Tender (in epigastric area)
Genito-urinary: No Costovertebral Tender
Musculoskeletal: No Clubbing, No Cyanosis and No Edema
Neuro: Awake, Alert, Oriented and AO x 3
Psych: Calm
[2024-09-01 11:46] LABS: Glucose - Point of Care 297 mg/dl (70-99)
[2024-09-01] MEDS: NOVOLOG FLEXPEN-MODERATE RESISTANCE 5 UNITS SC (12:16)
[2024-09-01 12:40] LABS: TSH Reflex To Free T4 2.35 uIU/ml (0.47-4.68)
--- NOTE | 2024-09-01 13:42 | W.CON.NEPH ---
Consultation
-
Date/Time Consultation Requested: September 01, 2024 at 10 AM
Date/Time Consultation Performed: September 01, 2024 at 1 PM
Requesting Provider: Dr. Pena
Performing Provider: Dr. Balderas
Reason for Consultation: Acute kidney injury
Medical History
-
Chief Complaint: CLEVE
History of Present Illness:
64-year-old female with history of CAD, hypertension, diabetes presenting to the emergency department with altered mental status. Patient reports approximately 2 weeks of balance difficulties while walking. She then states that about 1 week ago
she started experiencing dizziness/lightheadedness which has persisted although is intermittent in natur
Renal consulted for acute kidney injury and presented with a creatinine of 3 improved down to 2 with IV fluids
Urinalysis proteinuria with a protein creatinine ratio of 8.3
Past Medical History
CAD, hypertension, diabetes
Social History
Tobacco: Former Smoker
Alcohol: None
Family History
Family History: Not Pertinent
Allergies / Home Medications
Allergy/AdvReac Type Severity Reaction Status Date / Time
No Known Allergies Allergy Verified 08/30/24 12:04
�Medication �Instructions �Recorded �Confirmed �Type
amlodipine 10 mg tablet 10 mg PO DAILY 07/19/19 08/30/24 History
chlorthalidone 25 mg tablet 25 mg PO DAILY 07/19/19 08/30/24 History
metformin 1,000 mg tablet 1,000 mg PO BID 07/19/19 08/30/24 History
metoprolol tartrate 50 mg tablet 50 mg PO BID 07/19/19 08/30/24 History
aspirin 81 mg tablet,delayed 162 mg PO DAILY 08/30/24 08/30/24 History
release
atorvastatin 20 mg tablet (Lipitor) 20 mg PO QPM 08/30/24 08/30/24 History
ferrous sulfate 325 mg (65 mg 325 mg PO DAILY 08/30/24 08/30/24 History
iron) tablet
furosemide 20 mg tablet (Lasix) 20 mg PO DAILY 08/30/24 08/30/24 History
glimepiride 2 mg tablet 2 mg PO DAILY 08/30/24 08/30/24 History
lisinopril 40 mg tablet 40 mg PO DAILY 08/30/24 08/30/24 History
Review of Systems
-
Difficulty getting her words out otherwise no chest pain shortness of breath nausea or vomiting
Physical Exam
Vital Signs
Vital Signs
Temp Pulse Resp BP Pulse Ox
97.7 F 70 18 158/66 96
09/01/24 12:38 09/01/24 12:38 09/01/24 12:38 09/01/24 12:38 09/01/24 12:38
Lab Results
WBC 7.0 10^3/uL (4.8-10.8) 09/01/24 06:49
RBC 4.26 10^6/uL (4.20-5.40) 09/01/24 06:49
Hgb 12.4 g/dL (12.0-16.0) 09/01/24 06:49
Hct 37.1 % (37.0-47.0) 09/01/24 06:49
Plt Count 251 10^3/uL (130-400) 09/01/24 06:49
Sodium 142 mmol/L (135-145) 09/01/24 06:49
Potassium 3.8 mmol/L (3.5-5.1) 09/01/24 06:49
Chloride 111 mmol/L (98-107) H 09/01/24 06:49
Carbon Dioxide 21 mmol/L (22-30) L 09/01/24 06:49
BUN 32 mg/dl (7-17) H 09/01/24 06:49
Creatinine 2.0 mg/dL (0.6-1.0) H 09/01/24 06:49
eGFR 27.04 09/01/24 06:49
Glucose 253 mg/dl (70-99) H 09/01/24 06:49
Calcium 9.6 mg/dl (8.4-10.2) 09/01/24 06:49
Phosphorus 3.9 mg/dl (2.5-4.5) 08/30/24 12:19
Albumin 3.3 g/dl (3.5-5.0) L 09/01/24 06:49
Physical Exam
General no acute distress
HEENT no cephalic atraumatic extraocular muscle intact no scleral icterus no JVD neck supple
lungs clear to auscultation bilateral
heart regular S1-S2 positive
abdomen soft nontender positive bowel sounds
extremities no edema pulses present bilateral
Neurologically nonfocal alert and oriented x 3
Skin no lesions no abrasions no petechiae
Psych normal affect no bizarre behavior
Data Reviewed
-
Ultrasound: Image Personally Visualized and interpreted
Labs: Labs Reviewed by me and Discussed with Patient
Assessment/Plan
-
64-year-old female with history of CAD, hypertension, diabetes presenting to the emergency department with altered mental status. Patient reports approximately 2 weeks of balance difficulties while walking. She then states that about 1 week ago
she started experiencing dizziness/lightheadedness which has persisted although is intermittent in natur
Renal consulted for acute kidney injury and presented with a creatinine of 3 improved down to 2 with IV fluids
Urinalysis proteinuria with a protein creatinine ratio of 8.3
Creatinine 1 in 2019
Impression
Acute kidney injury creatinine of 3 on admission improved down to 2 with IV fluid
Proteinuria ratio 8.3 with initial albumin of 4.3
Altered mental status
Diabetes no diabetic retinopathy
CAD
Plan.
Acuity appears to be prerenal= continue IV fluids
Suspect proteinuria likely from diabetes
I will recheck protein creatinine ratio
Currently holding SUSAN inhibitor but will need to be back on this for proteinuria reduction
Also be candidate for SGLT2 inhibitor
Metformin on hold with acute kidney injury
Check hemoglobin A1c
Will check routine serologies/recheck protein creatinine ratio
Renal ultrasound negative for pathology no signs of medical renal disease although they are 11.8 and 11.2 cm which are larger than expected in 5 foot 3 female consistent with diabetic nephropathy
[2024-09-01 15:11] LABS: Protein/creatinine Ratio 11.6; Urine Protein 245 mg/dl
[2024-09-01 17:04] LABS: Glucose - Point of Care 241 mg/dl (70-99)
[2024-09-01] MEDS: LIPITOR 40 MG PO (17:22)
[2024-09-01 21:41] LABS: Glucose - Point of Care 366 mg/dl (70-99)
[2024-09-01] MEDS: NOVOLOG FLEXPEN 7 UNITS SC (21:55)
[2024-09-02] VITALS (8 sets, daily range): BP systolic 124–198; BP diastolic 58–96; PULSE 67–102; BMI 23.1
[2024-09-02 00:13] LABS: Glucose - Point of Care 203 mg/dl (70-99)
[2024-09-02 03:11] LABS: Glucose - Point of Care 173 mg/dl (70-99)
[2024-09-02] MEDS: APRESOLINE 10 MG IV ×2 (03:29→10:56)
[2024-09-02] MEDS: LOPRESSOR 50 MG PO ×2 (07:27→20:34)
[2024-09-02] MEDS: APRESOLINE 25 MG PO ×3 (07:29→23:08)
[2024-09-02] MEDS: ASPIR LOW (ENTERIC COATED) 81 MG PO (07:30)
[2024-09-02] MEDS: FEOSOL 325 MG PO (07:30)
[2024-09-02] MEDS: FARXIGA 5 MG PO (07:30)
[2024-09-02] MEDS: NORVASC 10 MG PO (07:30)
[2024-09-02 07:35] LABS: Glucose - Point of Care 237 mg/dl (70-99)
[2024-09-02] MEDS: NOVOLOG FLEXPEN-MODERATE RESISTANCE 3 UNITS SC (08:07)
[2024-09-02] MEDS: AMARYL 2 MG PO (08:45)
[2024-09-02 08:56] LABS: % Basophils 0.8 % (0-2); % Eosinophils 4.3 % (0-6); % Immature Granulocytes 0.3 % (0-0.5); % Lymphocytes 23.5 % (20.5-51.1); % Monocytes 6.7 % (1.7-9.3); % Neutrophils 64.4 % (42.2-75.2); Absolute Basophils 0.1 10^3/uL (0-0.2); Absolute Eosinophils 0.3 10^3/uL (0-0.7); Absolute Lymphocytes 1.7 10^3/uL (1.2-3.4); Absolute Monocytes 0.5 10^3/uL (0.1-0.6); Absolute Neutrophils 4.8 10^3/uL (1.4-6.5); Hematocrit 36.6 % (37.0-47.0); Hemoglobin 12.6 g/dL (12.0-16.0); Mean Corp Hgb Conc. 34.4 g/dL (33.0-37.0); Mean Corpuscular Hgb 29.8 pg (27.0-31.0); Mean Corpuscular Volume 86.5 fL (81.0-99.0); Mean Platelet Volume 11.3 fL (7.4-10.4); Nucleated Red Blood Cells % 0 %; Platelet Count 264 10^3/uL (130-400); Red Blood Cell Count 4.23 10^6/uL (4.20-5.40); Red Cell Dist. Width 13.1 % (11.5-14.5); White Blood Cell Count 7.4 10^3/uL (4.8-10.8)
[2024-09-02 09:26] LABS: ALT (SGPT) 13 U/L (0-35); AST (SGOT) 15 U/L (14-36); Albumin 3.2 g/dl (3.5-5.0); Alkaline Phosphatase 63 U/L (38-126); Blood Urea Nitrogen 25 mg/dl (7-17); Calcium 9.6 mg/dl (8.4-10.2); Carbon Dioxide 20 mmol/L (22-30); Chloride 110 mmol/L (98-107); Estimated Creatinine Clearance 25 ml/min; Glucose 239 mg/dl (70-99); Potassium 3.6 mmol/L (3.5-5.1); Sodium 141 mmol/L (135-145); Total Bilirubin 0.5 mg/dl (0.2-1.3); Total Protein 5.7 g/dl (6.3-8.2); eGFR 30.69
[2024-09-02 10:54] LABS: Glucose - Point of Care 250 mg/dl (70-99)
[2024-09-02 12:10] LABS: Complement C3 113 mg/dl (88-165)
--- NOTE | 2024-09-02 12:46 | W.PN.NEPH.PH ---
Today's Communication / Plan
-
obtain records
Assessment/Plan
-
64-year-old female with history of CAD, hypertension, diabetes presenting to the emergency department with altered mental status. Patient reports approximately 2 weeks of balance difficulties while walking. She then states that about 1 week ago
she started experiencing dizziness/lightheadedness which has persisted although is intermittent in natur
Renal consulted for acute kidney injury and presented with a creatinine of 3 improved down to 2 with IV fluids
Urinalysis proteinuria with a protein creatinine ratio of 8.3
Creatinine 1 in 2019
Impression
Acute kidney injury creatinine of 3 on admission improved down to 2 with IV fluid
Proteinuria ratio 8.3 with initial albumin of 4.3
Altered mental status
Diabetes no diabetic retinopathy
CAD
Plan.
follow BMP
increase farxiga
holding ACEI for now
He says that she has known about significant proteinuria since she was diagnosed with prediabetes years ago. She had actually seen nephrology at [facility] in the past as well but had stopped seeing them because she felt like no new changes were
being made.
We will try and obtain last creatinine values as well as urine protein creatinine ratios and A1c.
She should follow closely with her primary on discharge with possibility of reconsultation of nephrology locally
-
-
Date of Service: September 02, 2024
CC / HPI / ROS
-
Chief Complaint:
CLEVE
History of Present Illness:
CLEVE/Cr down to 1.8
BP stable
nonoliguric
nephrotic range proteinuria on
Review of Systems:
no CP/SOB
Labs
-
Labs:
WBC 7.4 10^3/uL (4.8-10.8) 09/02/24 08:05
RBC 4.23 10^6/uL (4.20-5.40) 09/02/24 08:05
Hgb 12.6 g/dL (12.0-16.0) 09/02/24 08:05
Hct 36.6 % (37.0-47.0) L 09/02/24 08:05
Plt Count 264 10^3/uL (130-400) 09/02/24 08:05
Sodium 141 mmol/L (135-145) 09/02/24 08:05
Potassium 3.6 mmol/L (3.5-5.1) 09/02/24 08:05
Chloride 110 mmol/L (98-107) H 09/02/24 08:05
Carbon Dioxide 20 mmol/L (22-30) L 09/02/24 08:05
BUN 25 mg/dl (7-17) H 09/02/24 08:05
Creatinine 1.8 mg/dL (0.6-1.0) H 09/02/24 08:05
eGFR 30.69 09/02/24 08:05
Glucose 239 mg/dl (70-99) H 09/02/24 08:05
Calcium 9.6 mg/dl (8.4-10.2) 09/02/24 08:05
Phosphorus 3.9 mg/dl (2.5-4.5) 08/30/24 12:19
Albumin 3.2 g/dl (3.5-5.0) L 09/02/24 08:05
Physical Exam
-
Vital Signs:
Vital Signs
Temp Pulse Resp BP Pulse Ox
98.3 F 73 18 124/58 95
09/02/24 10:49 09/02/24 11:56 09/02/24 10:49 09/02/24 11:56 09/02/24 10:49
Cardiovascular:: Regular rate and rhythm
Respiratory:: Bilateral: Coarse
Lung Excursion:: Normal
Abdomen:: Nontender and Soft
Bowel Sounds:: Normal
Extremity Edema:: None: Bilateral:
[2024-09-02] MEDS: NOVOLOG FLEXPEN-MODERATE RESISTANCE 5 UNITS SC (13:45)
--- NOTE | 2024-09-02 14:14 | W.PN.HOSP.TC ---
Today's Communication/Plan
-
await records
follow BMP
follow BMP
Assessment / Plan
Assessment / Plan
Assessment:
CLEVE with nephrotic range proteinuria
- CLEVE likely from dehydration
- Cr improved with IVF
- Nephrology following
- records from prior follow up pending
Nausea/vomiting
- suspect related to CLEVE
- resolved
- MRI without acute pathology
Dizziness, ambulatory deficiency
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
- MRI brain no CVA
- continue ASA/Statin
- PT/OT
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
Severe right neural foraminal narrowing, mild spinal cord compression, and mild central canal stenosis at C4/C5
Moderate bilateral neural foraminal narrowing, mild spinal cord compression, and mild central canal stenosis at C5/C6
- OP neuro Surgery followup
- PT/OT
Minor nonspecific white matter leukoaraiosis.
Moderate confluent white matter hyperintensity in laly.
- Such findings are nonspecific. Possible considerations include demyelination, gliosis, chronic microvascular white matter ischemic disease. Intravascular large B-cell lymphoma has also been described with features of high signal intensity lesions
in the laly, as has osmotic demyelination syndrome (clinical setting of rapid correction of hyponatremia). With no lymphocytosis, normal sodium, no signs of acute demyelination syndrome- will favor microvascular white matter disease or previous
demyelination
- cont ASA
UTI ruled out
DM type 2 with unspecified complications
- continue Glimepiride
- add Farxiga (check cost)
- holding Metformin
CAD- stable
Essential HTN
- holding SUSAN
- continue scheduled Hydralazine
HLD
Hx of bronchial carcinoid
- outpatient f/u with Oncology for CT Chest/Abd/Pelvis
DVT ppx: SCDs
Code: Full
Anticipated Discharge: > 48 hours
Subjective/Interval History
-
Date of Service: September 02, 2024
denies any new complaints
dizziness, nausea all resolved
tolerating diet
Objective Data
-
Labs:
Laboratory Results
09/02/24
08:05
WBC 7.4
Hgb 12.6
Hct 36.6 L
Plt Count 264
Sodium 141
Potassium 3.6
Chloride 110 H
Carbon Dioxide 20 L
BUN 25 H
Creatinine 1.8 H
Glucose 239 H
Calcium 9.6
Total Bilirubin 0.5
AST 15
ALT 13
Alkaline Phosphatase 63
Vital Signs:
Vital Signs
Temp Pulse Resp BP Pulse Ox
98.3 F 73 18 124/58 95
09/02/24 10:49 09/02/24 11:56 09/02/24 10:49 09/02/24 11:56 09/02/24 10:49
I&O
09/01/24 09/02/24 09/03/24
06:59 06:59 06:59
Intake Total 3940 / 3940 1440 / 1440
Balance 3940 / 3940 1440 / 1440
Physical Exam
-
General: No Apparent Distress
HEENT: Normocephalic and Atraumatic
Respiratory: Negative Wheezes
Cardiac: Regular Rhythm and S1/S2
Musculoskeletal: No Edema
Neuro: AO x 3
Psych: Calm
Data Reviewed
-
Total Time Spent with Patient (in minutes): 42
Labs: Labs Reviewed by me
--- NOTE | 2024-09-02 14:40 | CM ---
Addendum entered by Alexandra Leahy 09/02/24 16:41:
Cost of Farxiga is $500.55 for 30 pills.
Original Note:
Chart reviewed and plan is to home when stable.
Plan; Home no needs.
[2024-09-02 16:03] LABS: Glucose - Point of Care 291 mg/dl (70-99)
[2024-09-02] MEDS: LIPITOR 40 MG PO (17:27)
[2024-09-02] MEDS: NOVOLOG FLEXPEN-MODERATE RESISTANCE SC (17:28)
[2024-09-02] MEDS: NOVOLOG FLEXPEN-HIGH RESISTANCE 7 UNITS SC (17:28)
[2024-09-02 22:50] LABS: Glucose - Point of Care 213 mg/dl (70-99)
[2024-09-03 04:02] VITALS: BP 149/81
[2024-09-03 06:00] VITALS: BMI 23.1
[2024-09-03 07:24] VITALS: BP 176/69
[2024-09-03 07:38] VITALS: BP 170/64; BP 171/68; BP 176/69; PULSE 65; PULSE 68; PULSE 69
[2024-09-03 07:50] LABS: Glucose - Point of Care 189 mg/dl (70-99)
[2024-09-03] MEDS: ASPIR LOW (ENTERIC COATED) 81 MG PO (08:29)
[2024-09-03] MEDS: LOPRESSOR 50 MG PO (08:31)
[2024-09-03] MEDS: FARXIGA 10 MG PO (08:31)
[2024-09-03] MEDS: NORVASC 10 MG PO (08:32)
[2024-09-03] MEDS: FEOSOL 325 MG PO (08:32)
[2024-09-03] MEDS: APRESOLINE 25 MG PO (08:32)
[2024-09-03] MEDS: AMARYL 2 MG PO (08:32)
[2024-09-03] MEDS: NOVOLOG FLEXPEN-HIGH RESISTANCE 2 UNITS SC (08:33)
[2024-09-03 09:27] LABS: Blood Urea Nitrogen 27 mg/dl (7-17); Carbon Dioxide 24 mmol/L (22-30); Chloride 106 mmol/L (98-107); Estimated Creatinine Clearance 24 ml/min; Glucose 307 mg/dl (70-99); Potassium 3.4 mmol/L (3.5-5.1); Sodium 140 mmol/L (135-145); eGFR 28.76
[2024-09-03 09:45] VITALS: BP 143/57
[2024-09-03 11:16] VITALS: BP 146/62
--- NOTE | 2024-09-03 11:21 | CM ---
Chart reviewed and case coordinator received a consult to check on the cost of Jardiance and the cost is $500.92, per month. assistant quality manager provided cost of Jardiance and Farxiga information with patient and discussed her deductible, and patient states
that she has not yet met her deductible, and informed case coordinator that she was taking these medications before and after her deductible, the medications cost around $200 per month and she states she cannot afford this medication.
Plan; Home with family when stable.
[2024-09-03 11:38] LABS: Glucose - Point of Care 355 mg/dl (70-99)
[2024-09-03] MEDS: NOVOLOG FLEXPEN-HIGH RESISTANCE 12 UNITS SC (11:38)
--- NOTE | 2024-09-03 12:48 | W.PN.HOSP.TC ---
Today's Communication/Plan
-
dc home
Assessment / Plan
Assessment / Plan
Assessment:
CLEVE with nephrotic range proteinuria
- likely has CKD underlying, stage 4
- OP nephrology f/u
Nausea/vomiting
- suspect related to CLEVE
- resolved
- MRI without acute pathology
Dizziness, ambulatory deficiency
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
- MRI brain no CVA
- continue ASA/Statin
- PT/OT outpatient - script given
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
Severe right neural foraminal narrowing, mild spinal cord compression, and mild central canal stenosis at C4/C5
Moderate bilateral neural foraminal narrowing, mild spinal cord compression, and mild central canal stenosis at C5/C6
- OP neuro Surgery followup
- PT/OT outpatient - script given
Minor nonspecific white matter leukoaraiosis.
Moderate confluent white matter hyperintensity in laly.
- Such findings are nonspecific. Possible considerations include demyelination, gliosis, chronic microvascular white matter ischemic disease. Intravascular large B-cell lymphoma has also been described with features of high signal intensity lesions
in the laly, as has osmotic demyelination syndrome (clinical setting of rapid correction of hyponatremia). With no lymphocytosis, normal sodium, no signs of acute demyelination syndrome- will favor microvascular white matter disease or previous
demyelination
- cont ASA
UTI ruled out
DM type 2 with unspecified complications
- continue Glimepiride/Actos
- cannot afford SGLT2
- stop Metformin due to GFR<30
CAD- stable
Essential HTN
- resume SUSAN
HLD
Hx of bronchial carcinoid
- outpatient f/u with Oncology for CT Chest/Abd/Pelvis
DVT ppx: SCDs
Code: Full
More than 30 minutes spent in discharge including
Final examination of the patient
Summarizing hospital stay
Instructions for continuing care to all relevant caregivers
Preparation of discharge records, prescriptions, and referral forms
Total time spent (in minutes): 41
Anticipated Discharge: Today
Subjective/Interval History
-
Date of Service: September 03, 2024
no complaints
Objective Data
-
Labs:
Laboratory Results
09/03/24
08:34
Sodium 140
Potassium 3.4 L
Chloride 106
Carbon Dioxide 24
BUN 27 H
Creatinine 1.9 H
Glucose 307 H
Calcium 10.0
Vital Signs:
Vital Signs
Temp Pulse Resp BP Pulse Ox
98.4 F 54 18 146/62 97
09/03/24 11:16 09/03/24 11:16 09/03/24 11:16 09/03/24 11:16 09/03/24 11:16
I&O
09/02/24 09/03/24 09/04/24
06:59 06:59 06:59
Intake Total 1440 / 1440 1320 / 1320 300 / 300
Balance 1440 / 1440 1320 / 1320 300 / 300
Physical Exam
-
General: No Apparent Distress
HEENT: Normocephalic and Atraumatic
Respiratory: Negative Wheezes
Cardiac: Regular Rhythm and S1/S2
GI: Soft
Genito-urinary: No Costovertebral Tender
Neuro: AO x 3
Data Reviewed
-
Total Time Spent with Patient (in minutes): 41
Labs: Labs Reviewed by me
--- NOTE | 2024-09-03 13:33 | W.PN.NEPH.PH ---
Today's Communication / Plan
-
dc planning
Assessment/Plan
-
64-year-old female with history of CAD, hypertension, diabetes presenting to the emergency department with altered mental status. Patient reports approximately 2 weeks of balance difficulties while walking. She then states that about 1 week ago
she started experiencing dizziness/lightheadedness which has persisted although is intermittent in natur
Renal consulted for acute kidney injury and presented with a creatinine of 3 improved down to 2 with IV fluids
Urinalysis proteinuria with a protein creatinine ratio of 8.3
Creatinine 1 in 2019
Impression
Acute kidney injury creatinine of 3 on admission improved down to 2 with IV fluid
Proteinuria ratio 8.3 with initial albumin of 4.3
Altered mental status
Diabetes no diabetic retinopathy
CAD
Plan.
follow BMP
increase farxiga, can switch to jardiance as OP
holding ACEI for now, can restart on d/c
He says that she has known about significant proteinuria since she was diagnosed with prediabetes years ago. She had actually seen nephrology at [facility] in the past as well but had stopped seeing them because she felt like no new changes were
being made.
She should follow closely with her primary on discharge with possibility of reconsultation of nephrology locally
-
-
Date of Service: September 03, 2024
CC / HPI / ROS
-
Chief Complaint:
CLEVE
History of Present Illness:
CLEVE/Cr stablt 1.9
BP stable
nonoliguric
nephrotic range proteinuria on xi
Review of Systems:
no CP/SOB
Labs
-
Labs:
WBC 7.4 10^3/uL (4.8-10.8) 09/02/24 08:05
RBC 4.23 10^6/uL (4.20-5.40) 09/02/24 08:05
Hgb 12.6 g/dL (12.0-16.0) 09/02/24 08:05
Hct 36.6 % (37.0-47.0) L 09/02/24 08:05
Plt Count 264 10^3/uL (130-400) 09/02/24 08:05
Sodium 140 mmol/L (135-145) 09/03/24 08:34
Potassium 3.4 mmol/L (3.5-5.1) L 09/03/24 08:34
Chloride 106 mmol/L (98-107) 09/03/24 08:34
Carbon Dioxide 24 mmol/L (22-30) 09/03/24 08:34
BUN 27 mg/dl (7-17) H 09/03/24 08:34
Creatinine 1.9 mg/dL (0.6-1.0) H 09/03/24 08:34
eGFR 28.76 09/03/24 08:34
Glucose 307 mg/dl (70-99) H 09/03/24 08:34
Calcium 10.0 mg/dl (8.4-10.2) 09/03/24 08:34
Phosphorus 3.9 mg/dl (2.5-4.5) 08/30/24 12:19
Albumin 3.2 g/dl (3.5-5.0) L 09/02/24 08:05
Physical Exam
-
Vital Signs:
Vital Signs
Temp Pulse Resp BP Pulse Ox
98.4 F 54 18 146/62 97
09/03/24 11:16 09/03/24 11:16 09/03/24 11:16 09/03/24 11:16 09/03/24 11:16
Cardiovascular:: Regular rate and rhythm
Respiratory:: Bilateral: CTA
Lung Excursion:: Normal
Abdomen:: Nontender and Soft
Bowel Sounds:: Normal
Extremity Edema:: None: Bilateral:
--- NOTE | 2024-09-03 14:21 | W.DS.TRANS ---
DC Summary - Executive Advisor
-
Discharge Instructions:
Discharge Diagnosis/Procedures CLEVE on CKD, dehydration
Diet Diabetic, Carb Controlled
Activity As tolerated
Bathing Restrictions None
Other Services PT,OT
Instructions:
Stand-Alone Forms:
Changes to Home Medications: Yes
Discharge Medications:
DC Medications w/original date entered in [facility]
amlodipine 10 mg tablet 10 mg PO DAILY 07/19/19
chlorthalidone 25 mg tablet 25 mg PO DAILY 07/19/19
metoprolol tartrate 50 mg tablet 50 mg PO BID 07/19/19
aspirin 81 mg tablet,delayed release 162 mg PO DAILY 08/30/24
atorvastatin 20 mg tablet (Lipitor) 20 mg PO QPM 08/30/24
ferrous sulfate 325 mg (65 mg iron) tablet 325 mg PO DAILY 08/30/24
furosemide 20 mg tablet (Lasix) 20 mg PO DAILY 08/30/24
glimepiride 2 mg tablet 2 mg PO DAILY 08/30/24
lisinopril 40 mg tablet 40 mg PO DAILY 08/30/24
blood sugar diagnostic (Accu-Chek Guide test strips) #100 ea 09/03/24
blood-glucose meter (Accu-Chek Guide Glucose Meter) #1 ea 09/03/24
lancets (Accu-Chek Softclix Lancets) #100 ea 09/03/24
pioglitazone 15 mg tablet 15 mg PO DAILY #30 tabs 09/03/24
Home Medication Changes
Actos in favor of Metformin
Pending Results: No
Total time spent discharging patient (in min): 41
[2024-09-03 14:36] VITALS: BP 124/83
--- NOTE | 2024-09-03 15:26 | PTCARENOTE ---
09/03/2024 DIABETES EDUCATION
I met with Dali to review diabetes management.
She states she knows how to check glucose levels, then admits to not checking at home in years.
I educated on physiology of T2D, organ damage, managing with medications, monitoring BG, nutrition. Written material provided on diabetes management, self monitoring glucose, HbA1c goals, glucose tracker, medic alert bracelet and outpatient DSME
program. I educated and reviewed using Contour Next glucometer, member acknowledged understanding with a self demonstration of checking BS. Provided her with a Contour Next sample kit.
Patient verbalized understanding.
aDli was informed of discharge so we had limited time for further education. Informed Dali that provider called in order to [facility] for glucose testing supplies.
[2024-09-04 19:33] LABS: ANA, IgG Reflex to HEp-2 None Detected (None Detected)
== END 2024-09-03 15:28 | disposition home or self-care (01) | DRG 552 ==
LOC: 4 WEST ACU 17:39
PROVIDERS: Clinical Nurse Specialist Family Health; Emergency Medicine; Internal Medicine; Physician Assistant; Specialist; ADMITTING PHYSICIAN Hospitalist; ATTENDING PHYSICIAN Internal Medicine; CONSULT PHYSICIAN Internal Medicine Nephrology; CONSULT PHYSICIAN Psychiatry & Neurology Neurology; EMERGENCY PHYSICIAN Student in an Organized Health Care Education/Training Program; FAMILY PHYSICIAN Family Medicine
DX: M50.021 Cervical disc disorder at C4-C5 level with myelopathy (principal); N17.9 Acute kidney failure, unspecified; R47.01 Aphasia; N18.4 Chronic kidney disease, stage 4 (severe); E86.0 Dehydration; E11.22 Type 2 diabetes mellitus with diabetic chronic kidney disease; I12.9 Hypertensive chronic kidney disease with stage 1 through stage 4 chronic kidney disease, or unspecified chronic kidney disease; Z79.899 Other long term (current) drug therapy; Z79.82 Long term (current) use of aspirin; I25.10 Atherosclerotic heart disease of native coronary artery without angina pectoris; E78.5 Hyperlipidemia, unspecified; D3A.090 Benign carcinoid tumor of the bronchus and lung; M48.02 Spinal stenosis, cervical region; K21.9 Gastro-esophageal reflux disease without esophagitis; Z95.5 Presence of coronary angioplasty implant and graft; Z79.84 Long term (current) use of oral hypoglycemic drugs; Z86.73 Personal history of transient ischemic attack (TIA), and cerebral infarction without residual deficits; F17.290 Nicotine dependence, other tobacco product, uncomplicated; I45.10 Unspecified right bundle-branch block; S80.211A Abrasion, right knee, initial encounter; W19.XXXA Unspecified fall, initial encounter
CPT/HCPCS: 70450; 70551; 72125; 74181; 76770; 80048; 80053; 80061; 81003; 81015; 82550; 82570; 82962; 83036; 83735; 84100; 84156; 84443; 85025; 86038; 86160; 87086; 92523; 92610; 93005; 96360; 96361; 97162; 97530; 99285